=== PATIENT | female | born 2000 | race Caucasian/White ===

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

== ENCOUNTER 2018-02-17 22:47 | Outpatient (CLI) | payer BC ==
[~2018-02-17 22:47] MED LIST changes: -ABILIFY2 MG PO; -PROZAC 10MG10 MG PO; -XULANE1 TDM TD
[2018-02-18] MEDS ORDERED: PROZAC 10MG10 MG PO (04:55)
[2018-02-18] MEDS ORDERED: ABILIFY2 MG PO (04:56)
[2018-02-18] MEDS ORDERED: XULANE1 TDM TD (04:57)
== END 2018-02-18 02:40 | disposition home or self-care (01) ==
LOC: LDRO 22:47
DX: Z04.41 Encounter for examination and observation following alleged adult rape (principal)
CPT/HCPCS: J0696

== ENCOUNTER → 2018-02-17 | Outpatient (REF) ==
[~2018-02-17] MED LIST changes: +ABILIFY2 MG PO; +MACRODANTIN100 PO; +PROZAC 10MG10 MG PO; +XULANE1 TDM TD
== END ==
LOC: LDRO 22:48
DX: Z04.41 Encounter for examination and observation following alleged adult rape (principal)